=== PATIENT | male | born 1940 | race Caucasian/White ===

== ENCOUNTER 2017-06-14 05:45 | Day surgery (SDC) | payer MEDICARE ==
[2017-06-10 12:37] LABS: EOSINOPHILS % (AUTO) 2.4 % (0.0-8.0); HEMATOCRIT 43.8 % (42-54); LYMPHOCYTES % (AUTO) 20.7 % (21.0-51.0); MEAN CORPUSCULAR HEMOGLOBIN 30.7 pg (27.0-33.0); MEAN CORPUSCULAR HGB CONC 33.6 g/dL (32.0-36.0); MEAN CORPUSCULAR VOLUME 91.5 fL (79-99); MONOCYTES % (AUTO) 9.5 % (3.0-13.0); NEUTROPHILS % (AUTO) 66.4 % (40.0-77.0); PLATELET COUNT (AUTO) 181 K/uL (130-400); RED BLOOD CELL COUNT(AUTO) 4.79 MIL/uL (4.50-6.20); RED CELL DISTRIBUTION WIDTH 15.2 % (11.0-15.5); WHITE BLOOD COUNT (AUTO) 7.3 K/uL (4.8-10.8)
[2017-06-10 12:47] LABS: CREATININE 1.3 mg/dL (0.5-1.5); POTASSIUM 3.3 mmol/L (3.5-5.1)
[2017-06-10 12:49] LABS: INR 1.25 (0.85-1.15); PARTIAL THROMBOPLASTIN TIME 31.3 SEC (26.3-35.5); PROTHROMBIN TIME 13.1 SEC (9.6-11.6)
[2017-06-10 13:32] VITALS: BP 111/75
[2017-06-14] VITALS (10 sets, daily range): BP systolic 122–128; BP diastolic 77–89
[~2017-06-14] VITALS: Ht 177.8 cm; Wt 87.6 kg
[~2017-06-14 05:45] MED LIST: DIGO0.12 PO; FISH1CAP49 PO; FURO20TA4 PO; LATA2.5D2 OP; MAGN250T10 PO; METO1TAB41 PO; RIVA20TA PO; ROSU10TA PO; SACU1TAB PO; SODIUM CHLORIDE 0.9% 1000ML 1,000 ML IV SCH
[2017-06-14] MEDS ORDERED: SODIUM CHLORIDE 0.9% 500ML 500 ML IV SCH (08:00)
[2017-06-14] MEDS ORDERED: BUPIVACAINE/PF 0.25% 30ML VIAL IJ ONE (09:04)
[2017-06-14] MEDS ORDERED: MIDAZOLAM HCL 1 MG/ML 2ML VIAL ONE (09:05)
[2017-06-14] MEDS ORDERED: MEPERIDINE-PF 25 MG/ML SYG ONE (09:05)
[2017-06-14] MEDS ORDERED: LIDOCAINE HCL 1% MDV 50ML VIAL ONE (09:05)
[2017-06-14] MEDS ORDERED: VANCOMYCIN 1GM+NS 250ML 500 ML IV ONE (09:34)
[2017-06-14] MEDS ORDERED: ACETAMINOPHEN 325 MG TAB PO PRN (10:30)
[2017-06-14] MEDS ORDERED: ACETAMINOPHEN-CODEINE 300/30MG TAB PO PRN ×2 (10:30)
== END 2017-06-14 13:30 | disposition home or self-care (01) ==
LOC: DAH 05:45
PROVIDERS: ATTEND Internal Medicine Cardiovascular Disease
DX: T82.897A Other specified complication of cardiac prosthetic devices, implants and grafts, initial encounter (principal); I25.10 Atherosclerotic heart disease of native coronary artery without angina pectoris; I25.5 Ischemic cardiomyopathy; Z86.73 Personal history of transient ischemic attack (TIA), and cerebral infarction without residual deficits; E78.5 Hyperlipidemia, unspecified; Z95.0 Presence of cardiac pacemaker; I10 Essential (primary) hypertension; I48.1 Persistent atrial fibrillation
CPT/HCPCS: 10140; 10160; 36415; 77002; 80048; 84132; 85025; 85610; 85730; 99152; 99153; A4606; J2175; J2250; J3370; J3490

== ENCOUNTER → 2017-11-28 | Outpatient (CLI) | payer MEDICARE ==
[~2017-11-28] MED LIST changes: -SODIUM CHLORIDE 0.9% 1000ML 1,000 ML IV SCH
== END | disposition home or self-care (01) ==
LOC: RAH 14:51
PROVIDERS: ATTEND Physical Medicine & Rehabilitation
DX: M85.88 Other specified disorders of bone density and structure, other site (principal); M19.012 Primary osteoarthritis, left shoulder; M75.42 Impingement syndrome of left shoulder; I10 Essential (primary) hypertension; E78.5 Hyperlipidemia, unspecified; I25.10 Atherosclerotic heart disease of native coronary artery without angina pectoris
CPT/HCPCS: 73030